=== PATIENT | female | born 1980 | race Two or more races ===

== ENCOUNTER → 2019-03-14 | Day surgery (SDC) | payer OTHER ==
[~2019-03-14] MED LIST: HYDR50TA6 PO; IV RINGERS,LACTATED 1000ML 1,000 ML IV ONE; IV RINGERS,LACTATED 1000ML 1,000 ML IV SCH; OMEP20CA10 PO; PROPOFOL 20 ML IV ONE; PROPOFOL 40 ML IV ONE; RANI150C PO; SERT25TA PO
[2019-03-14 10:20] VITALS: BP 138/79
--- NOTE | 2019-03-14 11:22 | PREOP HP ---
DATE OF SERVICE: 03/14/2019 DATE OF PROCEDURE: 03/14/2019 REQUESTING PHYSICIAN: TROY Ribeiro PRIMARY CARE PHYSICIAN: TROY Ribeiro REASON FOR PROCEDURE: Epigastric pain and rectal bleed. HISTORY OF PRESENT ILLNESS: This is a 38-year-old patient who presents with epigastric pain and rectal bleed. ALLERGIES: AMOXICILLIN. PAST MEDICAL HISTORY: 1. Anemia. 2. Diarrhea. 3. Anxiety. FAMILY MEDICAL HISTORY: Significant for colon polyps in her father. SOCIAL HISTORY: She denies alcohol, tobacco or IV drug abuse. MEDICATIONS: MAR reviewed. REVIEW OF SYSTEMS: A 13-point review of systems was done. It is positive as per HPI and otherwise negative. PHYSICAL EXAMINATION: VITAL SIGNS: She is afebrile and her vital signs are stable. GENERAL: She is a well-developed, well-nourished female, in no apparent distress. HEENT: Oropharynx is clear. CARDIOVASCULAR: S1, S2. LUNGS: Clear. ABDOMEN: Normoactive bowel sounds, soft, nontender, nondistended. EXTREMITIES: No edema. NEUROLOGIC: Awake, alert and oriented x 3. ASSESSMENT AND PLAN: 1. Epigastric pain. 2. Internal hemorrhoids. 3. Rectal bleed. The risks and benefits of the procedure of the upper and lower endoscopy including bleeding, perforation, non-diagnosis and sedation were explained and she has agreed to proceed. RAFA PLUNKETT MD DR: LORENA/estefanía JOB#: [id number] / [id number]
--- NOTE | 2019-03-15 14:06 | PATHOLOGY ---
[facility] Accession Number: [id number] . 01 Material submitted: . PART A: small bowel - SMALL BOWEL BIOPSY PART B: stomach - GASTRIC ANTRUM/BODY PART C: esophagus - DISTAL ESOPHAGUS. Modifiers: distal PART D: colon - RIGHT COLON BIOPSY. Modifiers: right PART E: colon - LEFT COLON BIOPSY. Modifiers: left . 01 Clinical history: . Abdominal pain, rectal bleed . 02 Diagnosis: A. Small bowel biopsy: - No significant pathologic abnormalities. . B. Gastric biopsies, gastric antrum and body: - Chronic gastritis, mild. . C. Esophageal biopsies, distal esophagus: - Segments of esophagogastric and gastric mucosa showing chronic inflammation. . D. Colonic and small intestine mucosa, right colon biopsies: - No significant pathologic abnormalities. . E. Colonic mucosa, left colon biopsies: - No significant pathologic abnormalities. (JPM:wyatt; 03/15/2019) QMS 03/15/2019 1400 Local . 02 Comment: Sections of the small bowel biopsy reveal segments of duodenal mucosa. Where best oriented, the mucosal villi show no sprue-like changes or significant inflammatory changes. . Sections of the gastric biopsy reveal segments of gastric antral and gastric body mucosa. The gastric body mucosa show focal superficial slight chronic inflammation. The gastric antral mucosa shows congestion and mild chronic inflammation. A properly controlled immunoperoxidase stain for Helicobacter is negative for Helicobacter organisms. . Sections of the distal esophageal biopsy reveal a segment of esophagogastric mucosa and two segments of gastric mucosa. The esophagogastric mucosa shows moderate chronic inflammation. The segments of gastric mucosa show mild chronic inflammation. There is no evidence of Mota's change, dysplasia, or malignancy. . Sections of the right colon biopsy reveal two segments of small intestinal mucosa and several segments of colonic mucosa. The small intestinal mucosa has mucosa associated lymphoid tissue. Where best oriented, the mucosa villi show no sprue-like changes or significant inflammatory changes. The colonic mucosa contains a few focally hyperplastic mucosa associated lymphoid aggregates. There is no evidence of a chronic destructive colitis, lymphocytic colitis, or collagenous colitis. . Sections of the left colon biopsy reveal segments of colonic mucosa containing a single mucosa associated lymphoid aggregate. There is no evidence of a chronic destructive colitis, lymphocytic colitis, or collagenous colitis. (JPM:wyatt; 03/15/2019) . . Special stain performed: Immunoperoxidase stain for Helicobacter on B1. . 02 Electronically signed: . Ignacio Arevalo MD, Pathologist NPI- [id number] . 01 Gross description: . A. Received in formalin labeled "Bethanie Caicedo, small bowel BX," are 4 segments of miguel soft tissue measuring 1.2 x 0.9 x 0.3 cm in aggregate dimensions and ranging from 0.3 to 0.5 cm in maximum dimension. The specimen is submitted entirely in cassette A1. . B. Received in formalin labeled "Bethanie Caicedo, gastric antrum and body," are 4 segments of miguel soft tissue measuring 1.5 x 0.9 x 0.2 cm in aggregate dimensions and ranging from 0.5 to 0.7 cm in maximum dimension. The specimen is submitted entirely in cassette B1. . C. Received in formalin labeled "Bethanie Caicedo, distal esophagus," are 3 segments of miguel soft tissue measuring 0.6 x 0.6 x 0.3 cm in aggregate dimensions and ranging from 0.4 to 0.5 cm in maximum dimension. The specimen is submitted entirely in cassette C1. . D. Received in formalin labeled "Bethanie Caicedo, right colon," are 6 segments of miguel soft tissue measuring 1.2 x 1.0 x 0.3 cm in aggregate dimensions and ranging from 0.4 to 0.5 cm in maximum dimension. The specimen is submitted entirely in cassette D1. . E. Received in formalin labeled "Bethanie Caicedo, left colon," are 4 segments of miguel soft tissue measuring 1.5 x 1.0 x 0.3 cm in aggregate dimensions and ranging from 0.5 to 0.6 cm in maximum dimension. The specimen is submitted entirely in cassette E1. (TSD; 03/14/2019) TOB/TOB 03/14/2019 1757 Local . 02 Pathologist provided ICD-10: K29.50, K20.8, R10.9, K62.5 . 02 CPT . 547839, 182164, 405050, 405151, 234961, [id number] Specimen Comment: A courtesy copy of this report has been sent to Specimen Comment: [phone], . Specimen Comment: Report sent to / DR CUNNINGHAM Performed at: 01 [facility] [address], [place] [id number] MD Kurt Goss MD Phone: [phone] Performed at: 02 [facility] [address] [place] [id number] MD Ignacio Arevalo MD Phone: [phone]
== END ==
LOC: ENDOS 08:14 → EDSTATUS 09:00
PROVIDERS: ATTEND Internal Medicine Gastroenterology
DX: K62.5 Hemorrhage of anus and rectum (principal); K57.30 Diverticulosis of large intestine without perforation or abscess without bleeding; K21.0 Gastro-esophageal reflux disease with esophagitis; K29.50 Unspecified chronic gastritis without bleeding; K64.0 First degree hemorrhoids; D64.9 Anemia, unspecified; F41.9 Anxiety disorder, unspecified; F32.9 Major depressive disorder, single episode, unspecified; Z98.890 Other specified postprocedural states; Z88.1 Allergy status to other antibiotic agents
CPT/HCPCS: 43239; 45380; 81025; J2704